=== PATIENT | male | born 1955 | race Caucasian/White ===

== ENCOUNTER 2023-12-25 15:22 | Emergency (ER) | payer MEDICARE ==
[2023-12-25 15:27] VITALS: TEMP 97.4
[2023-12-25 15:43] VITALS: RESP 18
[2023-12-25 15:43] LABS: Glucose,Whole Blood 126 mg/dL (70-110)
--- NOTE | 2023-12-25 15:43 | ED ---
General Adult HPI - General Chief complaint: Dizziness Stated complaint: vertigo Time Seen by Provider: 12/25/23 15:23 Source: patient, family Limitations: no limitations - History of Present Illness Initial comments: Dictation was produced using Cordia dictation software. please excuse any grammatical, word or spelling errors. 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 He has history of prostate hypertrophy. His only daily medication is tamsulosin. Woke up this morning feeling normal. Last night went to bed feeling normal. After several hours she started to feel a slight headache. States that he started to feel dizzy and then lay down. He had some bouts of nonbilious nonbloody emesis. States that his daughter is a ER nurse. She evaluated him did some orthostatic vital signs which were found to be normal. However she did urged patient to come to the ER for medical evaluation. Patient states that for the last hour he has been having shaking chills. Denies any fever. States that however when he does stand up he feels feverish. Denies any cough runny nose or sore throat. No abdominal pain. No diarrhea. No obvious sick contacts. The ROS documented in this emergency department record has been reviewed and confirmed by me. Those systems with pertinent positive or negative responses have been documented in the HPI. All other systems are other negative and/or noncontributory. - Related Data Home Medications Medication Instructions Recorded Confirmed Ascorbic Acid [Vitamin C] 1,000 mg PO DAILY 12/25/23 12/25/23 Borage Seed Oil [Borage] 1,200 mg PO DAILY 12/25/23 12/25/23 Cholecalciferol (Vitamin D3) 50 mcg PO DAILY 12/25/23 12/25/23 [Vitamin D3 (50 Mcg = 2000 Iu) Chew Tab] Cyanocobalamin (Vitamin B-12) 1,000 mcg PO DAILY 12/25/23 12/25/23 [Vitamin B-12] Magnesium Oxide [Mag-Ox] 400 mg PO DAILY 12/25/23 12/25/23 [place]-3/Dha/Epa/Fish Oil [Fish Oil 1 cap PO DAILY 12/25/23 12/25/23 1,000 mg Softgel] Tamsulosin [Flomax] 0.4 mg PO BID 12/25/23 12/25/23 Vitamin A (Unknown Strength) 1 dose PO DAILY 12/25/23 12/25/23 Allergies Allergy/AdvReac Type Severity Reaction Status Date / Time No Known Allergies Allergy Verified 12/25/23 15:52 Review of Systems ROS Statement: Those systems with pertinent positive or pertinent negative responses have been documented in the HPI. ROS Other: All systems not noted in ROS Statement are negative. Past Medical History Past Medical History: No Reported History History of Any Multi-Drug Resistant Organisms: None Reported Past Surgical History: No Surgical Hx Reported Smoking Status: Never smoker Past Alcohol Use History: Occasional Past Drug Use History: None Reported General Exam - General Exam Comments Initial Comments: PHYSICAL EXAM: General Impression: Alert and oriented x3, not in acute distress HEENT: Normocephalic atraumatic, extra-ocular movements intact, pupils equal and reactive to light bilaterally, mucous membranes moist. Cardiovascular: Heart regular rate and rhythm Chest: Able to complete full sentences, no retractions, no tachypnea Abdomen: abdomen soft, non-tender, non-distended, no organomegaly Musculoskeletal: Pulses present and equal in all extremities, no peripheral edema Motor: no focal deficits noted Neurological: CN II-XII grossly intact, no focal motor or sensory deficits noted Skin: Intact with no visualized rashes Psych: Normal affect and mood Limitations: no limitations Course Vital Signs 12/25/23 12/25/23 12/25/23 15:24 15:31 16:37 Temperature 97.4 F L Pulse Rate 52 L 61 Respiratory 20 18 Rate Blood Pressure 142/76 147/79 Blood Pressure 135/86 [Left Arm Sitting] Blood Pressure 126/83 [Left Arm Standing] Blood Pressure 124/69 [Left Arm Supine] O2 Sat by Pulse 98 Oximetry EKG Findings - EKG Comments: EKG Findings:: My EKG interpretation: Ventricular rate 53, sinus bradycardia,. 190, QRS 101, QTc 418. No GA prolongation, no QTC prolongation, no ST or T-wave changes noted. Overall, this EKG is unremarkable Medical Decision Making - Medical Decision Making Was pt. sent in by a medical professional or institution (, PA, FOOD COUNSELOR, urgent care, hospital, or [place] health care facility...) When possible be specific @ -No Did you speak to anyone other than the patient for history (EMS, parent, family, police, friend...)? What history was obtained from this source @ - provided some history as described above Did you review nursing and triage notes (agree or disagree)? Why? @ -I reviewed and agree with nursing and triage notes Were old charts reviewed (outside hosp., previous admission, EMS record, old EKG, old radiological studies, urgent care reports/EKG's, [place] health care facility records)? Report findings @ -No old charts were reviewed Differential Diagnosis (chest pain, altered mental status, abdominal pain women, abdominal pain men, vaginal bleeding, musculoskeletal, weakness, fever, dyspnea, syncope, headache, dizziness, GI bleed, back pain, seizure, CVA, palpatations, mental health)? @ -Differential Dizziness: Benign paroxysmal positional Vertigo, Menieres disease, otitis media, acoustic neuroma, vertebrobasilar insufficiency, cerebellar stroke, encephalitis, hypovolemic, arrhythmia, coronary artery syndrome, anemia, this is not meant to be an all-inclusive list EKG interpreted by me (3pts min.). @ -See above X-rays interpreted by me (1pt min.). @ -None done CT interpreted by me (1pt min.). @ -None done U/S interpreted by me (1pt. min.). @ -None done What testing was considered but not performed or refused? (CT, X-rays, U/S, labs)? Why? @ -None What meds were considered but not given or refused? Why? @ -None Was smoking cessation discussed for >3mins.? @ -No Were there social determinants of health that impacted care today? How? (Homelessness, low income, unemployed, alcoholism, drug addiction, transportation, low edu. Level, literacy, decrease access to med. care, long term, rehab)? @ -No Was there de-escalation of care discussed even if they declined (Discuss DNR or withdrawal of care, Hospice)? DNR status @ -No What co-morbidities impacted this encounter? (DM, HTN, Smoking, COPD, CAD, Cancer, CVA, ARF, Chemo, Hep., AIDS, mental health diagnosis, sleep apnea, mor bid obesity)? @ -None Was patient admitted / discharged? Hospital course, mention meds given and ro [place], prescriptions, significant lab abnormalities, going to OR and other pertinent info. @ -68-year-old healthy male presents to the ER for lightheadedness and chills. Vital signs upon arrival are within acceptable limits. Physical examination shows well-appearing male who is experiencing some chills. Patient given IV fluids and IV Tylenol. Laboratory evaluation obtained. Labs are within acc eptable limits. CBC, coag panel metabolic panel shows no acute processes. Viral testing is negative. Troponin is negative. Patient reevaluated bedside at 4:47 PM on to be in stable medical addition. Patient is agreeable to discharge. Advised follow-up with primary care doctor. Suspect patient has a viral syndrome. Did you discuss the management of the patient with other professionals (anahi owusu i.e. , PA, FOOD COUNSELOR, lab, RT, psych nurse, social science research assistant, senior software development manager, teacher, animal park code enforcement officer, correctional case manager)? Give summary @ -No Was critical care preformed (if so, how long)? @ -No Undiagnosed new problem with uncertain prognosis? @ -No Drug Therapy requiring intensive monitoring for toxicity (Heparin, Nitro, Insulin, Cardizem)? @ -No Were any procedures done? @ -No Diagnosis/symptom? Acute, or Chronic, or Acute on Chronic? Uncomplicated (without systemic symptoms) or Complicated (systemic symptoms)? @ -Viral syndrome Side effects of treatment? @ -No Exacerbation, Progression, or Severe Exacerbation? @ -No Poses a threat to life or bodily function? How? (Chest pain, [place], [place], pneumonia, PE, COPD, DKA, ARF, appy, cholecystitis, CVA, Diverticulitis, Homicidal, Suicidal, threat to staff... and all critical care pts) @ -No - Lab Data Result diagrams: 12/25/23 15:46 12/25/23 15:46 Lab Results 12/25/23 12/25/23 12/25/23 Range/Units 15:42 15:46 15:46 WBC 9.3 (3.8-10.6) k/uL RBC 4.83 (4.30-5.90) m/uL Hgb 15.9 (13.0-17.5) gm/dL Hct 48.6 (39.0-53.0) % MCV 100.7 H (80.0-100.0) fL MCH 32.8 (25.0-35.0) pg MCHC 32.6 (31.0-37.0) g/dL RDW 12.9 (11.5-15.5) % Plt Count 325 (150-450) k/uL MPV 8.3 Neutrophils % 80 % Lymphocytes % 13 % Monocytes % 5 % Eosinophils % 1 % Basophils % 0 % Neutrophils # 7.4 (1.3-7.7) k/uL Lymphocytes # 1.2 (1.0-4.8) k/uL Monocytes # 0.5 (0-1.0) k/uL Eosinophils # 0.1 (0-0.7) k/uL Basophils # 0.0 (0-0.2) k/uL PT 10.7 (10.0-12.5) sec INR 1.0 (<1.2) APTT 22.6 (22.0-30.0) sec Sodium (137-145) mmol/L Potassium (3.5-5.1) mmol/L Chloride (98-107) mmol/L Carbon Dioxide (22-30) mmol/L Anion Gap mmol/L BUN (9-20) mg/dL Creatinine (0.66-1.25) mg/dL Est GFR (CKD-EPI)AfAm (>60 ml/min/1.73 sqM) Est GFR (CKD-EPI)NonAf (>60 ml/min/1.73 sqM) Glucose (74-99) mg/dL POC Glucose (mg/dL) 126 H (70-110) mg/dL POC Glu Spikemaking Supervisor [facility] Calcium (8.4-10.2) mg/dL Magnesium (1.6-2.3) mg/dL Troponin I (0.000-0.034) ng/mL Influenza Type A (PCR) (Not Detectd) Influenza Type B (PCR) (Not Detectd) RSV (PCR) (Not Detectd) SARS-CoV-2 (PCR) (Not Detectd) 12/25/23 12/25/23 12/25/23 Range/Units 15:46 15:46 15:46 WBC (3.8-10.6) k/uL RBC (4.30-5.90) m/uL Hgb (13.0-17.5) gm/dL Hct (39.0-53.0) % MCV (80.0-100.0) fL MCH (25.0-35.0) pg MCHC (31.0-37.0) g/dL RDW (11.5-15.5) % Plt Count (150-450) k/uL MPV Neutrophils % % Lymphocytes % % Monocytes % % Eosinophils % % Basophils % % Neutrophils # (1.3-7.7) k/uL Lymphocytes # (1.0-4.8) k/uL Monocytes # (0-1.0) k/uL Eosinophils # (0-0.7) k/uL Basophils # (0-0.2) k/uL PT (10.0-12.5) sec INR (<1.2) APTT (22.0-30.0) sec Sodium 136 L (137-145) mmol/L Potassium 4.6 (3.5-5.1) mmol/L Chloride 107 (98-107) mmol/L Carbon Dioxide 21 L (22-30) mmol/L Anion Gap 8 mmol/L BUN 17 (9-20) mg/dL Creatinine 0.70 (0.66-1.25) mg/dL Est GFR (CKD-EPI)AfAm >90 (>60 ml/min/1.73 sqM) Est GFR (CKD-EPI)NonAf >90 (>60 ml/min/1.73 sqM) Glucose 127 H (74-99) mg/dL POC Glucose (mg/dL) (70-110) mg/dL POC Glu Spikemaking Supervisor ID Calcium 9.8 (8.4-10.2) mg/dL Magnesium 2.1 (1.6-2.3) mg/dL Troponin I <0.012 (0.000-0.034) ng/mL Influenza Type A (PCR) Not Detected (Not Detectd) Influenza Type B (PCR) Not Detected (Not Detectd) RSV (PCR) Not Detected (Not Detectd) SARS-CoV-2 (PCR) Not Detected (Not Detectd) Disposition Clinical Impression: Viral syndrome Disposition: HOME SELF-CARE Condition: Good Instructions (If sedation given, give patient instructions): Dizziness (ED) Is patient prescribed a controlled substance at d/c from ED?: No Referrals: Julián Diehl DO [Primary Care Provider] - 1-2 days Time of Disposition: 16:48
[2023-12-25] MEDS: SODIUM CHLORIDE 0.9% 1,000 ML IV STA (15:45)
[2023-12-25] MEDS: ACETAMINOPHEN IV (For NPO) 1,000 MG in EMPTY BAG 1 BAG IVPB STA (15:54)
[2023-12-25 15:56] LABS: Basophils % (A) 0 %; Eosinophils # (A) 0.1 k/uL (0-0.7); Eosinophils % (A) 1 %; HCT 48.6 % (39.0-53.0); HGB 15.9 gm/dL (13.0-17.5); Lymphocytes # (A) 1.2 k/uL (1.0-4.8); Lymphocytes % (A) 13 %; MCH 32.8 pg (25.0-35.0); MCHC 32.6 g/dL (31.0-37.0); MCV 100.7 fL (80.0-100.0); Mean Platelet Volume 8.3; Monocytes # (A) 0.5 k/uL (0-1.0); Monocytes % (A) 5 %; Neutrophils # (A) 7.4 k/uL (1.3-7.7); Neutrophils % (A) 80 %; Platelet Count 325 k/uL (150-450); RBC 4.83 m/uL (4.30-5.90); RDW 12.9 % (11.5-15.5); WBC 9.3 k/uL (3.8-10.6)
[2023-12-25 16:05] LABS: Partial Thromboplastin Time 22.6 sec (22.0-30.0); Prothrombin Time 10.7 sec (10.0-12.5)
[2023-12-25 16:07] LABS: African American GFR (CKD) >90 (>60 ml/min/1.73 sqM); Anion Gap 8 mmol/L; Blood Urea Nitrogen 17 mg/dL (9-20); Calcium 9.8 mg/dL (8.4-10.2); Carbon Dioxide 21 mmol/L (22-30); Chloride 107 mmol/L (98-107); Glucose 127 mg/dL (74-99); Magnesium 2.1 mg/dL (1.6-2.3); Non-African American GFR(CKD) >90 (>60 ml/min/1.73 sqM); Potassium 4.6 mmol/L (3.5-5.1); Sodium 136 mmol/L (137-145)
[2023-12-25] MEDS: ONDANSETRON 4 MG ODT STARTER PACK 2 TAB BTL PO STA (17:03)
[2023-12-25] MEDS: ONDANSETRON ODT 4 MG TAB PO STA (17:07)
[2023-12-25 17:16] VITALS: BP 137/80; PULSE 54
== END 2023-12-25 17:41 | disposition home or self-care (01) ==
LOC: EC 15:22
DX: B34.9 Viral infection, unspecified (principal)
CPT/HCPCS: 36415; 93005; 80048; 83735; 84484; 85025; 85610; 85730; 87636; 99284; 96365; J0131; S0119

== ENCOUNTER → 2024-03-23 | Outpatient (CLI) | payer MEDICARE | END | disposition home or self-care (01) | LOC: LABPAT 12:16 | PROVIDERS: ATTEND Surgery Plastic and Reconstructive Surgery | CPT/HCPCS: 93005 ==

== ENCOUNTER 2024-04-30 07:48 | Day surgery (SDC) | payer MEDICARE ==
--- NOTE | 2024-04-30 06:27 | P.GSHP ---
History of Present Illness H&P Date: 04/30/24 CHIEF COMPLAINT: Inguinal hernia, left. HISTORY OF PRESENT ILLNESS: The patient is a 68-year-old male who presents with a history of swelling and pain along the left groin. He has noted increased swelling including pain of the area. Now he presents for repair of his inguinal hernia. PAST MEDICAL HISTORY: Please see list. PAST SURGICAL HISTORY: Please see list. MEDICATIONS: Please see list. ALLERGIES: Please see list. SOCIAL HISTORY: No illicit drug use FAMILY HISTORY: No reports of Crohn disease or ulcerative colitis. REVIEW OF ORGAN SYSTEMS: CONSTITUTIONAL: No reports of fevers or chills. No reports of weight loss despite prior attempts. GI: Denies any blood in stools or constipation. PHYSICAL EXAM: VITAL SIGNS: Stable GENERAL: Well-developed pleasant in no acute distress. HEENT: No scleral icterus. Extraocular movements grossly intact. Moist buccal mucosa. NECK: Supple without lymphadenopathy. CHEST: Unlabored respirations. Equal bilateral excursions. CARDIOVASCULAR: Regular rate and rhythm. Distal 2+ pulses. ABDOMEN: Soft, nondistended. No peritoneal signs. Moderate tenderness left lower quadrant MUSCULOSKELETAL: No clubbing, cyanosis, or edema. ASSESSMENT: 1. Inguinal hernia, left initial and symptomatic. PLAN: 1. Recommend proceeding robotic inguinal repair with mesh with possible bilateral approach. 2. Benefits and risks of surgical intervention was discussed including possibility of open technique. 3. DVT prophylaxis. 4. Antibiotic prophylaxis. 5. Non narcotic pain management including abdominal wall block described 6. Blood sugar glucose described. 7. Weight loss management described. 8. CBC and CMP on day of procedure 9. Flomax for prevention of urinary retention Past Medical History Past Medical History: Prostate Disorder Additional Past Medical History / Comment(s): low heart rate average 52. BPH History of Any Multi-Drug Resistant Organisms: None Reported Past Surgical History: No Surgical Hx Reported Additional Past Surgical History / Comment(s): colonscopy. Past Anesthesia/Blood Transfusion Reactions: No Reported Reaction Smoking Status: Never smoker - Past Family History Father Family Medical History: Diabetes Mellitus Mother Family Medical History: Diabetes Mellitus Brother(s) Family Medical History: Diabetes Mellitus Sister(s) Family Medical History: Diabetes Mellitus Medications and Allergies Home Medications Medication Instructions Recorded Confirmed Type Ascorbic Acid [Vitamin C] 1,000 mg PO DAILY 12/25/23 04/28/24 History Borage Seed Oil [Borage] 1,200 mg PO DAILY 12/25/23 04/28/24 History [place]-3/Dha/Epa/Fish Oil [Fish Oil 1 cap PO DAILY 12/25/23 04/28/24 History 1,000 mg Softgel] Tamsulosin [Flomax] 0.4 mg PO BID 12/25/23 04/28/24 History Super Multi B 1 tab PO DAILY 04/28/24 04/28/24 History Unk Triple Magnesium 1 tab PO DAILY 04/28/24 04/28/24 History Allergies Allergy/AdvReac Type Severity Reaction Status Date / Time No Known Allergies Allergy Verified 04/28/24 12:37
[~2024-04-30 07:48] MED LIST: HYDROmorphone 0.5 MG/0.5 ML SYRINGE IVP PRN; TAMSULOSIN 0.4 MG CAP.ER.24H PO STA
[2024-04-30] MEDS: LACTATED RINGERS 1,000 ML IV SCH (09:00)
[2024-04-30] MEDS: IV FLUID CONTINUATION 1,000 ML IV ONE (09:07)
[2024-04-30 09:27] LABS: Basophils # (A) 0.1 k/uL (0-0.2); Basophils % (A) 1 %; Eosinophils # (A) 0.1 k/uL (0-0.7); Eosinophils % (A) 2 %; HCT 46.3 % (39.0-53.0); HGB 15.3 gm/dL (13.0-17.5); Lymphocytes # (A) 1.3 k/uL (1.0-4.8); Lymphocytes % (A) 18 %; MCH 32.9 pg (25.0-35.0); MCV 99.5 fL (80.0-100.0); Mean Platelet Volume 7.9; Monocytes # (A) 0.5 k/uL (0-1.0); Monocytes % (A) 8 %; Neutrophils # (A) 4.9 k/uL (1.3-7.7); Neutrophils % (A) 70 %; Platelet Count 283 k/uL (150-450); RBC 4.65 m/uL (4.30-5.90); RDW 12.7 % (11.5-15.5)
[2024-04-30] MEDS: ACETAMINOPHEN TAB 500 MG TAB PO PRN (09:32)
[2024-04-30] MEDS: MELOXICAM 7.5 MG TAB PO PRN (09:32)
[2024-04-30] MEDS: ONDANSETRON 4 MG/2 ML VIAL IVP PRN (09:32)
[2024-04-30] MEDS: DEXAMETHASONE SOD PHOSPHATE 4 MG/ML 1 ML VIAL IVP STA (09:33)
[2024-04-30] MEDS: MIDAZOLAM 2 MG/2 ML VIAL IV PRN (09:36)
[2024-04-30] MEDS: fentaNYL (PF) 50 MCG/ML 2 ML AMP IVP STA (09:36)
[2024-04-30 09:45] LABS: ALT 23 U/L (4-49); AST 26 U/L (17-59); African American GFR (CKD) >90 (>60 ml/min/1.73 sqM); Albumin 4.5 g/dL (3.5-5.0); Alkaline Phosphatase 75 U/L (38-126); Anion Gap 6 mmol/L; Blood Urea Nitrogen 17 mg/dL (9-20); Calcium 9.1 mg/dL (8.4-10.2); Carbon Dioxide 25 mmol/L (22-30); Chloride 108 mmol/L (98-107); Glucose 110 mg/dL (74-99); Non-African American GFR(CKD) 89 (>60 ml/min/1.73 sqM); Potassium 4.5 mmol/L (3.5-5.1); Sodium 139 mmol/L (137-145); Total Protein 7.1 g/dL (6.3-8.2)
--- NOTE | 2024-04-30 09:46 | P.ANPRN ---
Procedure Note - Anesthesia - Nerve Block Performed Bilateral Erector Spinae Single Time Out Performed: Yes Date of Procedure: 04/30/24 Procedure Start Time: :36 Procedure Stop Time: :43 Location of Patient: PreOp Indication: Acute Post-Operative Pain, Requested by Surgeon Sedation Type: Sedate with meaningful contact maintained Preparation: Sterile Prep Position: Prone Needle Types: Pajunk Needle Gauge: 21 Ultrasound used to visualize needle placement: Yes Ultrasound used to observe medication spread: Yes Injectate: 0.5% Ropivacaine (see comment for volume) (15 ml + 15 ml NS + $ mg Dexamethasone per side) Blood Aspirated: No Pain Paresthesia on Injection Noted: No Resistance on Injection: Normal Image Stored and Saved: Yes Events: Uneventful and Well Tolerated
[2024-04-30] MEDS ORDERED: GLYCOPYRROLATE 0.2 MG/ML 2 ML VIAL ONE (09:49)
[2024-04-30] MEDS ORDERED: HYDROmorphone (PF) 1 MG/ML ONE (09:49)
[2024-04-30] MEDS ORDERED: SODIUM CHLORIDE 0.9% (PF) 10 ML VIAL ONE (09:49)
[2024-04-30] MEDS ORDERED: fentaNYL (PF) 50 MCG/ML 2 ML AMP ONE (09:49)
[2024-04-30] MEDS ORDERED: ROPIVACAINE 5 MG/ML 30 ML VIAL ONE (09:49)
[2024-04-30] MEDS ORDERED: NEOSTIGMINE 1 MG/ML 10 ML VIAL ONE (09:49)
[2024-04-30] MEDS ORDERED: KETOROLAC 15 MG/ML 1 ML VIAL ONE (09:49)
[2024-04-30] MEDS ORDERED: ePHEDrine 50 MG/ML 1 ML VIAL ONE (09:49)
[2024-04-30] MEDS ORDERED: LIDOCAINE 1% INJ 10MG/ML (20 ML MDV) ONE (09:49)
[2024-04-30] MEDS ORDERED: PROPOFOL 10 MG/ML 20 ML VIAL IV ONE (09:49)
[2024-04-30] MEDS ORDERED: KETAMINE HCL IN 0.9 % NACL 50 MG/5 ML SYRINGE ONE (09:49)
[2024-04-30] MEDS ORDERED: DEXAMETHASONE SOD PHOSPHATE 4 MG/ML 1 ML VIAL ONE (09:49)
[2024-04-30] MEDS ORDERED: ROCURONIUM 10 MG/ML (5 ML VIAL) IV ONE (09:49)
[2024-04-30] MEDS: HEPARIN SODIUM,PORCINE 5,000 UNIT/ML 1 ML VIAL SQ PRN (09:51)
[2024-04-30] MEDS: LIDOCAINE 1%-EPI 1:100,000 20 ML VIAL SQ ONE (10:22)
[2024-04-30] MEDS: LACTATED RINGERS 1,000 ML IV ONE (11:16)
[2024-04-30 11:31] VITALS: TEMP 97
[2024-04-30 13:51] VITALS: BP 115/73; PULSE 70; RESP 18
--- NOTE | 2024-05-08 21:14 | P.OP ---
Date of Procedure: 04/30/24 Description of Procedure: SURGEON: IZABEL NGUYEN MD PREOPERATIVE DIAGNOSES: 1. Initial left inguinal hernia 2. Benign prostatic hypertrophy with urinary outflow obstruction POSTOPERATIVE DIAGNOSES: 1. Initial left inguinal hernia with incarceration and bowel obstruction, sigmoid colon 2. Benign prostatic hypertrophy with urinary outflow obstruction 3. Right lower abdominal adhesions OPERATION: 1. Robotic-assisted da Rigo Xi laparoscopic lysis of adhesions 2. Robotic-assisted da Rigo Xi laparoscopic reductionand repair of initial left indirect inguinal hernia with mesh, 10 x [address] ANESTHESIA: General with local anesthetic ESTIMATED BLOOD LOSS: 10 mL. SPECIMENS: 1. Left inguinal hernia sac COMPLICATIONS: None. FINDINGS: 1. Incarcerated sigmoid colon, left indirect inguinal hernia with partial bowel obstruction 2. Nyhus type IIIb, left indirect inguinal hernia extending to scrotum, 4 cm fascial defect including enlargement of external ring 3. No hernia along the right groin 4. Right lower quadrant omentum to abdominal wall adhesions lysed INDICATIONS: The patient is a 68-year-old male who presents with swelling along the left groin, initial left inguinal hernia. Laparoscopic versus open and robotic approaches were discussed including bilateral approach. Benefits and risks including bleeding, infection, chronic groin pain, sterility were reviewed. Placement of mesh was also described. Informed consent was obtained. DESCRIPTION: In the preoperative area, an abdominal block was placed per anesthesia. The patient was brought to the operating room and initially laid in supine position. The abdomen had been prepped and draped in standard sterile fashion. [place]an draping was also placed. Prior to incision, a timeout protocol was confirmed with surgical team regarding patient's name including procedures to be performed. Initial positioning for the robotic assisted ports were selected 20 cm superior to the target anatomy. A 0 degree 5 mm laparoscopic trocar entry was performed at the left upper quadrant. The abdomen was insufflated to 15 mmHg which he tolerated well. Diagnostic laparoscopy demonstrated no injury to bowel, viscera or mesentery. Adhesions along the right lower abdomen was identified omentum to the abdominal wall. Left direct inguinal defect with incarcerated sigmoid colon causing partial bowel obstruction was found. Next, along the epigastrium, 8 mm robot trocar was placed. An 8-mm robotic trocar was placed under direct visualization at the right upper quadrant. An 8 mm port was placed at the left upper quadrant. All trocars were positioned between 10-cm apart from each other. An additional 12 mm trocar along the right lateral abdominal wall was placed for placement of instruments and suture. The Slyce XI robot was primed, draped, prepared for docking along upper abdomen of the patient. The patient was positioned 21 steep Trendelenburg position. I then went to the Slyce Xi console. The administration assistant was at bedside for exchange of the robot arms and equipment. Attention was brought to the right groin. No inguinal hernia was identified. Adhesions along the right lower abdomen was taken down using scissors with cautery for the omentum to the abdominal wall. Attention was brought to the left groin. Incarcerated left inguinal defect was confirmed requiring reduction of incarcerated sigmoid colon due to partial bowel obstruction. Moderate adhesive bands of the left groin was identified requiring careful dissection and lysis of adhesions without injury to the sigmoid colon or colotomy. Vessel sealer including scissors was used to free the sigmoid colon from surrounding tissue of the hernia sac. Next, the left groin defect was measured 3 x 3-cm hernia with the sac extending to the scrotum. A large indirect hernia was confirmed, Nyhus type 3B. The left inguinal hernia sac was evaginated whereby the peritoneum was scored using Endo scissors with cautery. As the hernia sac extended into the groin, complete resection of the sac was done. The peritoneal sac of the hernia was stripped. The sac was resected and then passed off for further pathological analysis. The size of the hernia defect was 3 cm x 3 cm with intraoperative films obtained. Using a 2-0 VLOC nonabsorbable, the fascial defect conjoined tendon to the inguinal shelf was performed to reapproximate the inguinal ring followed by the the peritoneal defect of the right inguinal hernia site was closed in a pursestring fashion. The defect was found to be completely closed with complete of the sigmoid of the left indirect inguinal hernia was confirmed. As an onlay, an 10 x [address] mesh by [employer] was cut in half and entered into the abdominal cavity via the 12 mm trocar. The mesh was tacked to the pelvis using absorbable 2-0 VLOC 12 inch and 9-inch length sutures. A final endoscopic imaging was obtained. The robot was undocked from the patient's bedside. I then rescrubbed into the case. Insufflation was released from the abdominal cavity and all instruments were removed from the abdominal cavity. Pressure was applied along the left groin. The rest of incisions were reapproximated using 4-0 Monocryl in a running subcuticular fashion. Local anesthetic was placed along the incision including for a bilateral groin block. Incisions were cleansed using dilute hydrogen peroxide. Liquid glue was applied to the skin. At the end of the procedure, the needle, sponge and instrument counts had been verified correct by the surgical oncologist. The patient had tolerated the procedure well and was taken to the postanesthesia care unit in stable condition. Intraoperative images were reviewed with the patient's family who were pleased with the level of care. Plan - Discharge Summary New Discharge Prescriptions: New Simethicone [Gas-X] 125 mg PO AC-TID PRN #20 capsule PRN Reason: Pain Ibuprofen [Motrin] 600 mg PO Q8HR PRN #30 tab PRN Reason: Pain Acetaminophen Tab [Tylenol Tab] 1,000 mg PO Q6HR PRN #30 tablet PRN Reason: Pain Continue Ascorbic Acid [Vitamin C] 1,000 mg PO DAILY Tamsulosin [Flomax] 0.4 mg PO BID [place]-3/Dha/Epa/Fish Oil [Fish Oil 1,000 mg Softgel] 1 cap PO DAILY Unk Triple Magnesium 1 tab PO DAILY Super Multi B 1 tab PO DAILY Borage Seed Oil [Borage] 1,200 mg PO DAILY Discharge Medication List Ascorbic Acid [Vitamin C] 1,000 mg PO DAILY 12/25/23 [History] Borage Seed Oil [Borage] 1,200 mg PO DAILY 12/25/23 [History] [place]-3/Dha/Epa/Fish Oil [Fish Oil 1,000 mg Softgel] 1 cap PO DAILY 12/25/23 [History] Tamsulosin [Flomax] 0.4 mg PO BID 12/25/23 [History] Super Multi B 1 tab PO DAILY 04/28/24 [History] Unk Triple Magnesium 1 tab PO DAILY 04/28/24 [History] Acetaminophen Tab [Tylenol Tab] 1,000 mg PO Q6HR PRN #30 tablet 04/30/24 [Rx] Ibuprofen [Motrin] 600 mg PO Q8HR PRN #30 tab 04/30/24 [Rx] Simethicone [Gas-X] 125 mg PO AC-TID PRN #20 capsule 04/30/24 [Rx] Follow up Appointment(s)/Referral(s): Izabel Nguyen MD [STAFF PHYSICIAN] - 05/04/24 6:30 pm Patient Instructions/Handouts: *[facility] - Managing Your Pain After Surgery Without Opioids, *[facility] - (Anesthesia) Discharge Instructions Outpatient Surgery, Laparoscopic Herniorrhaphy (DC) Activity/Diet/Wound Care/Special Instructions: TELEHEALTH - DR WILL CALL YOU BETWEEN 9 am to 8 pm NO LONG DRIVES OR AIRPLANE RIDES OVER 60 MINUTES FOR THE NEXT 2 WEEKS, 05/14/24, DUE TO HIGH RISK OF PULMONARY EMBOLISM/DVTs May drive in 72 hrs, 05/03/24 No lifting over 10 pounds in 2 weeks until 05/14/24 May shower. No bath tub soaks for two weeks until 05/14/24 Diet as tolerated. Use Tylenol, simethicone and ibuprofen or Aleve scheduled for the next 24-48 hours for best pain relief. Use ice along incisions for today to prevent swelling. Discharge Disposition: HOME SELF-CARE
== END 2024-04-30 14:38 | disposition home or self-care (01) ==
LOC: OR 07:48
PROVIDERS: ATTEND Surgery Plastic and Reconstructive Surgery
DX: K40.90 Unilateral inguinal hernia, without obstruction or gangrene, not specified as recurrent (principal); G89.18 Other acute postprocedural pain; K56.50 Intestinal adhesions [bands], unspecified as to partial versus complete obstruction; N40.1 Benign prostatic hyperplasia with lower urinary tract symptoms; F10.90 Alcohol use, unspecified, uncomplicated; F12.90 Cannabis use, unspecified, uncomplicated; Z79.899 Other long term (current) drug therapy
CPT/HCPCS: 49650; 64999; 80053; 85025; 88302; C1781; J2250; J1644; J1100; J2710; J0690; J2405; J2003; J3010; J1171; J2795; J1885; J2704; J1596